=== PATIENT | male | born 1985 | race Two or more races ===

== ENCOUNTER 2022-08-13 21:09 | Emergency (ER) | payer BC ==
[~2022-08-13] VITALS: Ht 172.7 cm; Wt 88.9 kg
[2022-08-13] MEDS ORDERED: KETOROLAC TROMETHAMINE 60 MG INJ IM ONE ×2 (21:45→21:50)
[2022-08-13] MEDS ORDERED: IBUP-1958 PO (23:18)
--- NOTE | 2022-08-13 23:29 | NUR ---
Patient a/o x 4. NAD noted. Ambulatory with a steady gait. All belongings with patient. Patient discharged to home in stable condition. Written and verbal after care instructions given. Patient verbalizes understanding of instructions. Stressed follow up or return to ER for worsening s/s.
[2022-08-13 23:30] VITALS: BP 149/98
== END 2022-08-13 23:32 | disposition home or self-care (01) ==
LOC: ER 21:09
DX: S43.101A Unspecified dislocation of right acromioclavicular joint, initial encounter (principal); W18.39XA Other fall on same level, initial encounter; Y93.89 Activity, other specified; Y92.89 Other specified places as the place of occurrence of the external cause; Y99.8 Other external cause status
CPT/HCPCS: 73000; 73030; A4663; J1885